=== PATIENT | female | born 2000 | race Hispanic/Latino ===

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

== ENCOUNTER 2019-10-06 06:31 | Inpatient (IN) | payer MEDICAID ==
[~2019-10-06] VITALS: Ht 162.6 cm; Wt 97.1 kg
[2019-10-06] MEDS ORDERED: LACTATED RINGERS 1000ML 1,000 ML IV SCH (06:45)
[2019-10-06 06:56] VITALS: BP 134/83
[2019-10-06] MEDS ORDERED: PREN1TAB80 PO (06:58)
[2019-10-06 07:11] LABS: APPEARANCE,URINE Clear (CLEAR); BILIRUBIN,URINE Negative (NEGATIVE); COLOR,URINE Yellow (YELLOW); GLUCOSE, URINE (UA) Negative (NEGATIVE); KETONES,URINE Negative (NEGATIVE); LEUKOCYTE ESTERASE ,URINE Small (NEGATIVE); NITRATE,URINE Negative (NEGATIVE); OCCULT BLOOD,URINE Small (NEGATIVE); PH,URINE 6.5 (5.0-8.0); PROTEIN,URINE Negative (NEGATIVE)
[2019-10-06 07:26] LABS: BACTERIA,URINE Rare /HPF (None Seen); RBC,URINE 0-1 /HPF (0-1); SQUAMOUS EPITHELIAL CELL,UR Rare /HPF (0-2)
[2019-10-06] MEDS ORDERED: LACTATED RINGERS 1000ML 1,000 ML IV PRN (07:50)
[2019-10-06] MEDS ORDERED: AMPICILLIN 1GM+NS 50ML 50 ML IV SCH (08:00)
[2019-10-06] MEDS ORDERED: AMPICILLIN 2GM+NS 100ML 100 ML IV SCH (08:00)
[2019-10-06] MEDS ORDERED: OXYTOCIN-LR 20 UNITS/1000 ML 1,000 ML IV SCH (08:00)
[2019-10-06 08:05] LABS: HEMATOCRIT 38.1 % (36-48); MEAN CORPUSCULAR HGB CONC 33.1 g/dL (32.0-36.0); MEAN CORPUSCULAR VOLUME 87.6 fL (80-100); RED BLOOD CELL COUNT(AUTO) 4.35 MIL/uL (4.00-5.50); WHITE BLOOD COUNT (AUTO) 9.6 K/uL (4.8-10.8)
[2019-10-06] MEDS ORDERED: OXYTOCIN 10 USP UNITS/ML 20 UNIT in LACTATED RINGERS 1000ML 1,000 ML IV SCH (09:30)
[2019-10-06] MEDS ORDERED: PROMETHAZINE HCL 25 MG/ML 1ML AMPULE IM PRN (09:45)
[2019-10-06] MEDS ORDERED: MEPERIDINE-PF 50 MG/ML SYG IVP PRN (09:45)
[2019-10-06] MEDS ORDERED: LIDOCAINE HCL 1% 20 ML VIAL ONE (12:17)
[2019-10-06] MEDS ORDERED: METHYLERGONOVINE MALEATE 0.2 MG/1 ML ML ONE (12:41)
[2019-10-06] MEDS ORDERED: IBUPROFEN 600 MG TABLET ONE (13:25)
[2019-10-06 13:37] VITALS: BP 121/66
--- NOTE | 2019-10-06 13:50 | NUR ---
Assisted to the bathroom, voided 600ml, pericare done, assisted back to bed. Addendum: 10/06/19 at 1356 by CALISTA AVINA RN Amended: Links added.
[2019-10-06 13:53] LABS: AMPHET/METH SCREEN,URINE NEGATIVE (NEGATIVE); BARBITURATE SCREEN, URINE NEGATIVE (NEGATIVE); BENZODIAZEPINES SCREEN,URINE NEGATIVE (NEGATIVE); CANNABINOID SCREEN,URINE NEGATIVE (NEGATIVE); COCAINE SCREEN,URINE NEGATIVE (NEGATIVE); OPIATE SCREEN,URINE NEGATIVE (NEGATIVE); PHENCYCLIDINE SCREEN,URINE NEGATIVE (NEGATIVE)
--- NOTE | 2019-10-06 14:15 | NUR ---
recovery QBL - 39ml Addendum: 10/06/19 at 1755 by CALISTA AVINA RN Amended: Links added.
[2019-10-06] MEDS ORDERED: DIPH,PERTUSS(ACELL),TET VAC/PF 0.5 ML VIAL IM PRN (15:30)
[2019-10-06] MEDS ORDERED: BENZOCAINE/LANOLIN/ALOE VERA 60 ML AEROSOL TP PRN (15:30)
[2019-10-06] MEDS ORDERED: ACETAMINOPHEN 325 MG TAB PO PRN (15:30)
[2019-10-06] MEDS ORDERED: LANOLIN 30GM OINTMENT TP PRN (15:30)
[2019-10-06] MEDS ORDERED: ACETAMINOPHEN-CODEINE 300/30MG TAB PO PRN (15:30)
[2019-10-06] MEDS ORDERED: MEASLES/MUMPS/RUBELLA VACCINE, LIVE 0.5 ML/VIAL SQ PRN (15:30)
[2019-10-06] MEDS ORDERED: WITCH HAZEL 1 PAD TP PRN (15:30)
[2019-10-06 16:42] VITALS: BP 127/75
[2019-10-06 19:48] VITALS: BP 118/65
[2019-10-06] MEDS: DOCUSATE SODIUM 100 MG CAP PO SCH (21:10)
[2019-10-06 23:39] VITALS: BP 112/70
[2019-10-07] MEDS: IBUPROFEN 600 MG TABLET PO PRN ×2 (00:39→10:30)
[2019-10-07 03:41] VITALS: BP 120/67
[2019-10-07 06:42] LABS: HEMATOCRIT 36.3 % (36-48); MEAN CORPUSCULAR HEMOGLOBIN 28.7 pg (27.0-33.0); MEAN CORPUSCULAR HGB CONC 33.3 g/dL (32.0-36.0); MEAN CORPUSCULAR VOLUME 86.2 fL (80-100); RED BLOOD CELL COUNT(AUTO) 4.21 MIL/uL (4.00-5.50); RED CELL DISTRIBUTION WIDTH 13.9 % (11.0-15.5); WHITE BLOOD COUNT (AUTO) 13.4 K/uL (4.8-10.8)
[2019-10-07 07:49] VITALS: BP 119/68
[2019-10-07 10:14] LABS: HEPATITIS Bs ANTIGEN SCREEN P Negative (Negative)
[2019-10-07] MEDS: DOCUSATE SODIUM 100 MG CAP PO SCH (10:27)
[2019-10-07 12:07] VITALS: BP 121/77
--- NOTE | 2019-10-07 14:45 | NUR ---
pt is discharged. verbal and written discharge instructions given. informed of the follow up appointment, no prescription given. Informed to call her doctor for any concerns. Pt voiced understanding to all things discussed. pt is waiting for her baby's discharge. Addendum: 10/07/19 at 1454 by CALISTA AVINA RN Amended: Links added.
--- NOTE | 2019-10-07 17:20 | NUR ---
pt is dismissed with her baby in stable condition, brought to private car via wheelchair by Ashia Hennessy lvn Addendum: 10/07/19 at 1736 by CALISTA AVINA RN Amended: Links added.
== END 2019-10-07 17:20 | disposition home or self-care (01) | DRG 560 ==
LOC: EDH 06:31 → LDH 06:32 → OBSVTOIN 07:50 → LDH 09:19 → WSH 13:35
PROVIDERS: ADMIT Specialist; ATTEND Specialist
PROC: 10E0XZZ Delivery of Products of Conception, External Approach (ICD-10-PCS; principal; 2019-10-06)
PROC: 0HQ9XZZ Repair Perineum Skin, External Approach (ICD-10-PCS; 2019-10-06)
PROC: 3E0234Z Introduction of Serum, Toxoid and Vaccine into Muscle, Percutaneous Approach (ICD-10-PCS; 2019-10-06)
PROC: 3E0134Z Introduction of Serum, Toxoid and Vaccine into Subcutaneous Tissue, Percutaneous Approach (ICD-10-PCS; 2019-10-06)
DX: O69.1XX0 Labor and delivery complicated by cord around neck, with compression, not applicable or unspecified (principal); O70.0 First degree perineal laceration during delivery; Z3A.37 37 weeks gestation of pregnancy; Z37.0 Single live birth; Z23 Encounter for immunization
CPT/HCPCS: 36415; 80305; 81001; 85027; 86592; 86850; 86900; 86901; 87340; G0378; J0290; J2210; J2590; J7120

== ENCOUNTER 2021-09-19 05:32 | Day surgery (SDC) | payer MEDICAID ==
[2021-09-18 16:26] VITALS: BP 119/72
[2021-09-18 16:31] LABS: BASOPHILS % (AUTO) 0.5 % (0.0-5.0); EOSINOPHILS % (AUTO) 0.9 % (0.0-8.0); HEMATOCRIT 39.7 % (36-48); LYMPHOCYTES % (AUTO) 60.2 % (21.0-51.0); MEAN CORPUSCULAR HEMOGLOBIN 27.6 pg (27.0-33.0); MEAN CORPUSCULAR HGB CONC 32.7 g/dL (32.0-36.0); MEAN CORPUSCULAR VOLUME 84.3 fL (80-100); MONOCYTES % (AUTO) 5.7 % (3.0-13.0); NEUTROPHILS % (AUTO) 32.4 % (40.0-77.0); PLATELET COUNT (AUTO) 226 K/uL (130-400); RED BLOOD CELL COUNT(AUTO) 4.71 MIL/uL (4.00-5.50); RED CELL DISTRIBUTION WIDTH 13.7 % (11.0-15.5); WHITE BLOOD COUNT (AUTO) 7.5 K/uL (4.8-10.8)
[2021-09-18 16:36] LABS: APPEARANCE,URINE Clear (CLEAR); BILIRUBIN,URINE Negative (NEGATIVE); COLOR,URINE Yellow (YELLOW); GLUCOSE, URINE (UA) Negative (NEGATIVE); KETONES,URINE Negative (NEGATIVE); LEUKOCYTE ESTERASE ,URINE Negative (NEGATIVE); NITRATE,URINE Negative (NEGATIVE); OCCULT BLOOD,URINE Negative (NEGATIVE); PH,URINE 5.5 (5.0-8.0); PROTEIN,URINE Negative (NEGATIVE); UROBILINOGEN,URINE 0.2 mg/dL (0.2-1.0)
[2021-09-19] VITALS (15 sets, daily range): BP systolic 117–143; BP diastolic 44–82
[~2021-09-19] VITALS: Ht 162.6 cm; Wt 101.2 kg
[2021-09-19] MEDS ORDERED: LIDOCAINE PF 100MG/5ML (2%) SYRINGE 5ML ONE ×2 (07:46→07:48)
[2021-09-19] MEDS ORDERED: DEXAMETHASONE SOD PHOSPHATE 10MG/ML 1ML VIAL ONE ×2 (07:46→07:48)
[2021-09-19] MEDS ORDERED: SUCCINYLCHOLINE CHLORIDE 20 MG/ML 10 ML VIAL ONE (07:46)
[2021-09-19] MEDS ORDERED: NEOSTIGMINE 5MG/5ML SYR IV ONE (07:47)
[2021-09-19] MEDS ORDERED: MIDAZOLAM HCL 1 MG/ML 2ML VIAL ONE (07:47)
[2021-09-19] MEDS ORDERED: FENTANYL CITRATE PF 50 MCG/1 ML 2ML VIAL ONE (07:47)
[2021-09-19] MEDS ORDERED: ONDANSETRON 4MG INJ ONE (07:47)
[2021-09-19] MEDS ORDERED: PROPOFOL 10 MG/ML 20ML VIAL IV ONE (07:47)
[2021-09-19] MEDS ORDERED: ROCURONIUM 10MG/1ML SYR 10 MG/ML ML ONE (07:47)
[2021-09-19] MEDS ORDERED: GLYCOPYRROLATE 1 MG/5 ML SYRINGE ONE (07:47)
[2021-09-19] MEDS ORDERED: LACTATED RINGERS 1000ML 1,000 ML IV SCH (08:00)
[2021-09-19] MEDS ORDERED: MEPERIDINE-PF 25 MG/ML SYG ONE (09:18)
== END 2021-09-19 10:15 | disposition home or self-care (01) ==
LOC: DAH 05:32
PROVIDERS: ATTEND Obstetrics & Gynecology
DX: Z30.2 Encounter for sterilization (principal)
CPT/HCPCS: 84703; 85025; 86850; 86900; 86901; 87426; 81003; 36415; 58670; A6260; A4663; A4351; A4606; A4215 ×2; J7120; J3010; J3490 ×4; J1100 ×2; J2710; J0330; J2250; J2405; J2175; C1769 ×2; A4452; A4223; A4222; A4221; J2001; J2704